=== PATIENT | female | born 1935 | race Caucasian/White ===

== ENCOUNTER → 2017-08-02 | Outpatient (CLI) | payer MEDICARE ==
[2017-08-02 10:54] LABS: HEMATOCRIT 39.7 % (36.0-47.0); HEMOGLOBIN 13.4 g/dl (12.0-16.0); MEAN CORPUSCULAR HEMOGLOBIN 30.2 pg (27.0-33.0); MEAN CORPUSCULAR HGB CONC 33.8 g/dl (32.0-36.5); MEAN CORPUSCULAR VOLUME 89.6 fl (80.0-96.0); PLATELET COUNT, AUTOMATED 216 10^3/uL (150-450); RED BLOOD COUNT 4.43 10^6/uL (4.00-5.40); RED CELL DISTRIBUTION WIDTH 12.7 % (11.5-14.5); WHITE BLOOD COUNT 5.9 10^3/uL (4.0-10.0)
[2017-08-02 11:01] LABS: APPEARANCE, URINE CLEAR (CLEAR); BACTERIA, URINE AUTO NEGATIVE (NEGATIVE); BILIRUBIN, URINE AUTO NEGATIVE (NEGATIVE); BLOOD, URINE BLOOD NEGATIVE (NEGATIVE); COLOR, URINE YELLOW (YELLOW); GLUCOSE, URINE (UA) AUTO NEGATIVE (NEGATIVE); KETONE, URINE AUTO NEGATIVE (NEGATIVE); LEUKOCYTE ESTERASE, URINE AUTO NEGATIVE (NEGATIVE); NITRITE, URINE AUTO NEGATIVE (NEGATIVE); PROTEIN, URINE AUTO NEGATIVE (NEGATIVE); RBC, URINE AUTO 2 /HPF (0-3); SPECIFIC GRAVITY URINE AUTO 1.017 (1.002-1.035); SQUAMOUS EPITHELIAL CELL UR AU 1 /HPF (0-6); UROBILINOGEN, URINE AUTO 0.2 mg/dL (0.0-2.0); WBC, URINE AUTO 0 /HPF (0-3)
[2017-08-02 11:03] LABS: PROTHROMBIN TIME 13.3 SECONDS (12.4-14.5)
[2017-08-02 11:21] LABS: ALBUMIN 4.1 GM/DL (3.2-5.2); ALBUMIN/GLOBULIN RATIO 1.28 (1.00-1.93); ALKALINE PHOSPHATASE 56 U/L (45-117); ALT/SGPT 21 U/L (12-78); ANION GAP 7 MEQ/L (8-16); AST/SGOT 16 U/L (7-37); BILIRUBIN,TOTAL 0.5 MG/DL (0.2-1.0); BLOOD UREA NITROGEN 22 MG/DL (7-18); CALCIUM LEVEL 9.9 MG/DL (8.8-10.2); CARBON DIOXIDE LEVEL 32 MEQ/L (21-32); CHLORIDE LEVEL 102 MEQ/L (98-107); CREATININE FOR GFR 0.81 MG/DL (0.55-1.30); GLOMERULAR FILTRATION RATE > 60.0 (>32); GLUCOSE, FASTING 92 MG/DL (70-100); POTASSIUM SERUM 4.1 MEQ/L (3.5-5.1); SODIUM LEVEL 141 MEQ/L (136-145); TOTAL PROTEIN 7.3 GM/DL (6.4-8.2)
[2017-08-02 11:38] LABS: ERYTHROCYTE SEDIMENTATION RATE 15 mm/hr (0-30)
== END ==
LOC: M ADMPAT 09:07
DX: Z01.818 Encounter for other preprocedural examination (principal); R93.41 Abnormal radiologic findings on diagnostic imaging of renal pelvis, ureter, or bladder; Z79.899 Other long term (current) drug therapy
CPT/HCPCS: 71046

== ENCOUNTER 2017-08-26 10:13 | Inpatient (IN) | payer MEDICARE ==
[2017-08-26] MEDS: LR 1,000 ML IV ×2 (11:00→22:21)
[2017-08-26] MEDS: PREGABALIN 75 MG CAP(LYRICA) PO (11:16)
[2017-08-26] MEDS: PERCOCET 5MG/325MG TAB PO ×2 (11:17→18:02)
[2017-08-26] MEDS ORDERED: ONDANSETRON 4MG/2ML VIAL (J2405) As Ordered (11:43)
[2017-08-26] MEDS ORDERED: PROPOFOL 200 MG/20 ML VIAL As Ordered ×2 (11:43→15:25)
[2017-08-26] MEDS ORDERED: LIDOCAINE 2% INJ 100 MG/5 ML SDV (FOR ANES.) As Ordered (11:43)
[2017-08-26] MEDS ORDERED: fentaNYL 100 MCG/2 ML INJECTION (J3010) As Ordered ×2 (11:44→12:38)
[2017-08-26] MEDS ORDERED: MIDAZOLAM INJ 2 MG/2 ML VIAL (J2250) As Ordered ×2 (11:44→12:38)
[2017-08-26] MEDS: MIDAZOLAM INJ 2 MG/2 ML VIAL (J2250) IV ×2 (13:24→13:26)
[2017-08-26] MEDS: fentaNYL 100 MCG/2 ML INJECTION (J3010) IV (13:24)
[2017-08-26] MEDS: LIDOCAINE W/EPINEPHRINE 1% 20ML VIAL As Ordered ×2 (13:54→14:30)
[2017-08-26] MEDS ORDERED: ePHEDrine SULFATE 25 MG/5 ML(5MG/ML) SYRINGE As Ordered ×2 (14:11→14:47)
[2017-08-26] MEDS ORDERED: LIDOCAINE 1% MDV 20ML VIAL (15:19)
[2017-08-26] MEDS ORDERED: ROPIvacaine 0.5% 30 ML INJECTION (J2795 PER 1MG) (15:19)
[2017-08-26] MEDS ORDERED: dexameTHASONE 10 MG/1 ML VIAL PRES.FREE (J1100) (15:19)
[2017-08-26] MEDS: CLINDAMYCIN INJ 900MG/6ML VIAL As Ordered (15:24)
[2017-08-26] MEDS: EPINEPHrine INJ 1 MG/ML 1ML AMP As Ordered (15:24)
[2017-08-26] MEDS: TRANEXAMIC ACID 100 MG/ML 10ML VIAL As Ordered (15:25)
[2017-08-26] MEDS: BUPIVACAINE HCL 0.25% 10 ML VIAL As Ordered (15:50)
[2017-08-26] MEDS: BUPIVACAINE LIPOSOME/PF 1.3% 20 ML VIAL (13.3MG/ML)(EXPAREL) As Ordered (15:50)
[2017-08-26] MEDS ORDERED: PERCOCET 5MG/325MG TAB PO (17:00)
[2017-08-26] MEDS ORDERED: FLEET ENEMA PR (17:00)
[2017-08-26] MEDS ORDERED: PROMETHAZINE INJ 25 MG/ML VIAL (J2550) IV (17:15)
[2017-08-26] MEDS: WARFARIN SOD 5 MG TAB PO (17:58)
[2017-08-26] MEDS: MORPHINE 4 MG/ML 1ML VIAL/SYRINGE (J2270) IV (18:00)
[2017-08-26] MEDS ORDERED: PILL CRUSHER/CUTTER 1 EACH XX (20:30)
[2017-08-26 20:38] LABS: HEMATOCRIT 35.7 % (36.0-47.0); MEAN CORPUSCULAR HGB CONC 33.6 g/dl (32.0-36.5); MEAN CORPUSCULAR VOLUME 89.3 fl (80.0-96.0); PLATELET COUNT, AUTOMATED 197 10^3/uL (150-450); RED CELL DISTRIBUTION WIDTH 12.5 % (11.5-14.5); WHITE BLOOD COUNT 8.3 10^3/uL (4.0-10.0)
[2017-08-26 20:59] LABS: ANION GAP 5 MEQ/L (8-16); BLOOD UREA NITROGEN 17 MG/DL (7-18); CALCIUM LEVEL 8.7 MG/DL (8.8-10.2); CARBON DIOXIDE LEVEL 29 MEQ/L (21-32); CHLORIDE LEVEL 106 MEQ/L (98-107); GLOMERULAR FILTRATION RATE > 60.0 (>32); GLUCOSE, FASTING 183 MG/DL (70-100); POTASSIUM SERUM 3.5 MEQ/L (3.5-5.1); SODIUM LEVEL 140 MEQ/L (136-145)
[2017-08-26] MEDS: LATANOPROST 0.005% OPHTH SOLN 2.5 ML OD (21:00)
[2017-08-26] MEDS: VALSARTAN 80 MG TAB (DIOVAN) PO (22:20)
[2017-08-26] MEDS: ROSUVASTATIN 10 MG TAB (CRESTOR) PO (22:20)
[2017-08-27] MEDS: PERCOCET 5MG/325MG TAB PO ×4 (02:18→20:48)
[2017-08-27 06:44] LABS: HEMATOCRIT 33.8 % (36.0-47.0); HEMOGLOBIN 11.3 g/dl (12.0-15.5); MEAN CORPUSCULAR HGB CONC 33.4 g/dl (32.0-36.5); MEAN CORPUSCULAR VOLUME 89.7 fl (80.0-96.0); PLATELET COUNT, AUTOMATED 201 10^3/uL (150-450); RED BLOOD COUNT 3.77 10^6/uL (4.00-5.40); RED CELL DISTRIBUTION WIDTH 12.7 % (11.5-14.5); WHITE BLOOD COUNT 12.2 10^3/uL (4.0-10.0)
[2017-08-27 07:52] LABS: INR 1.21; PROTHROMBIN TIME 15.5 SECONDS (12.4-14.5)
[2017-08-27] MEDS: NEBIVOLOL 5 MG TAB (BYSTOLIC) PO (10:13)
[2017-08-27] MEDS: MOM 30ML SUSPENSION UDC PO (10:15)
[2017-08-27] MEDS: SENOKOT S TAB PO ×2 (10:16→20:47)
[2017-08-27] MEDS: MIRALAX *UNIT DOSE* 17GM PACKET PO (10:16)
[2017-08-27] MEDS: WARFARIN SOD 5 MG TAB PO (17:31)
[2017-08-27] MEDS: LATANOPROST 0.005% OPHTH SOLN 2.5 ML OD (20:46)
[2017-08-27] MEDS: ROSUVASTATIN 10 MG TAB (CRESTOR) PO (20:47)
[2017-08-27] MEDS: VALSARTAN 80 MG TAB (DIOVAN) PO (20:47)
[2017-08-28] MEDS: PERCOCET 5MG/325MG TAB PO ×5 (02:12→23:23)
[2017-08-28 07:01] LABS: HEMATOCRIT 31.4 % (36.0-47.0); HEMOGLOBIN 10.4 g/dl (12.0-15.5); MEAN CORPUSCULAR HEMOGLOBIN 30.1 pg (27.0-33.0); MEAN CORPUSCULAR HGB CONC 33.1 g/dl (32.0-36.5); MEAN CORPUSCULAR VOLUME 90.8 fl (80.0-96.0); PLATELET COUNT, AUTOMATED 184 10^3/uL (150-450); RED BLOOD COUNT 3.46 10^6/uL (4.00-5.40); RED CELL DISTRIBUTION WIDTH 13.1 % (11.5-14.5)
[2017-08-28 07:09] LABS: INR 2.11; PROTHROMBIN TIME 24.4 SECONDS (12.4-14.5)
[2017-08-28 07:19] LABS: ANION GAP 3 MEQ/L (8-16); BLOOD UREA NITROGEN 21 MG/DL (7-18); CALCIUM LEVEL 8.4 MG/DL (8.8-10.2); CARBON DIOXIDE LEVEL 30 MEQ/L (21-32); CHLORIDE LEVEL 106 MEQ/L (98-107); CREATININE FOR GFR 0.85 MG/DL (0.55-1.30); GLOMERULAR FILTRATION RATE > 60.0 (>32); GLUCOSE, FASTING 109 MG/DL (70-100); SODIUM LEVEL 139 MEQ/L (136-145)
[2017-08-28] MEDS: MOM 30ML SUSPENSION UDC PO (10:01)
[2017-08-28] MEDS: MIRALAX *UNIT DOSE* 17GM PACKET PO (10:01)
[2017-08-28] MEDS: NEBIVOLOL 5 MG TAB (BYSTOLIC) PO (10:01)
[2017-08-28] MEDS: SENOKOT S TAB PO ×3 (10:01→21:21)
[2017-08-28] MEDS: ROSUVASTATIN 10 MG TAB (CRESTOR) PO (21:21)
[2017-08-28] MEDS: VALSARTAN 80 MG TAB (DIOVAN) PO (21:22)
[2017-08-28] MEDS: LATANOPROST 0.005% OPHTH SOLN 2.5 ML OD (21:24)
[2017-08-29] MEDS: PERCOCET 5MG/325MG TAB PO ×3 (05:03→14:53)
[2017-08-29 06:56] LABS: HEMATOCRIT 33.1 % (36.0-47.0); HEMOGLOBIN 10.7 g/dl (12.0-15.5); MEAN CORPUSCULAR HGB CONC 32.3 g/dl (32.0-36.5); MEAN CORPUSCULAR VOLUME 89.7 fl (80.0-96.0); PLATELET COUNT, AUTOMATED 199 10^3/uL (150-450); RED BLOOD COUNT 3.69 10^6/uL (4.00-5.40); RED CELL DISTRIBUTION WIDTH 13.1 % (11.5-14.5)
[2017-08-29 07:07] LABS: INR 1.97; PROTHROMBIN TIME 23.1 SECONDS (12.4-14.5)
[2017-08-29 07:23] LABS: ANION GAP 7 MEQ/L (8-16); BLOOD UREA NITROGEN 16 MG/DL (7-18); CALCIUM LEVEL 8.6 MG/DL (8.8-10.2); CARBON DIOXIDE LEVEL 28 MEQ/L (21-32); CHLORIDE LEVEL 104 MEQ/L (98-107); CREATININE FOR GFR 0.84 MG/DL (0.55-1.30); GLOMERULAR FILTRATION RATE > 60.0 (>32); GLUCOSE, FASTING 93 MG/DL (70-100); SODIUM LEVEL 139 MEQ/L (136-145)
[2017-08-29] MEDS: MOM 30ML SUSPENSION UDC PO ×2 (09:00→09:06)
[2017-08-29] MEDS: NEBIVOLOL 5 MG TAB (BYSTOLIC) PO (09:06)
[2017-08-29] MEDS: MIRALAX *UNIT DOSE* 17GM PACKET PO (09:06)
[2017-08-29] MEDS: SENOKOT S TAB PO (09:07)
[2017-08-29] MEDS: ACETAMINOPHEN TAB 650MG DOSE (2X325MG) PO (09:18)
[2017-08-29] MEDS ORDERED: WARFARIN SOD 2.5 MG TAB PO (17:00)
== END 2017-08-29 15:43 | disposition other institution (70) | DRG 470 ==
LOC: M OR 10:13 → M MS5PR 17:10
PROC: 0SRC0J9 Replacement of Right Knee Joint with Synthetic Substitute, Cemented, Open Approach (ICD-10-PCS; principal; 2017-08-26 12:15)
DX: M17.11 Unilateral primary osteoarthritis, right knee (principal); Z88.2 Allergy status to sulfonamides; Z88.0 Allergy status to penicillin; Z88.6 Allergy status to analgesic agent; I10 Essential (primary) hypertension; E78.00 Pure hypercholesterolemia, unspecified; Z79.899 Other long term (current) drug therapy; Z90.710 Acquired absence of both cervix and uterus; Z98.41 Cataract extraction status, right eye; Z98.42 Cataract extraction status, left eye

== ENCOUNTER 2017-08-29 15:21 | Inpatient (IN) | payer MEDICARE ==
[~2017-08-29 15:21] MED LIST: BISACODYL 10 MG SUPP PR; BISACODYL 5 MG TAB PO; FLEET ENEMA PR; ONDANSETRON 4 MG TAB (S0181) PO
[2017-08-29] MEDS ORDERED: PILL CRUSHER/CUTTER 1 EACH XX (17:00)
[2017-08-29] MEDS: WARFARIN SOD 2.5 MG TAB PO (18:50)
[2017-08-29] MEDS: ROSUVASTATIN 10 MG TAB (CRESTOR) PO (20:48)
[2017-08-29] MEDS: SENNA 8.6 MG TAB (SENOKOT) PO (20:48)
[2017-08-29] MEDS: LATANOPROST 0.005% OPHTH SOLN 2.5 ML OD (20:48)
[2017-08-29] MEDS: VALSARTAN 80 MG TAB (DIOVAN) PO (20:49)
[2017-08-29] MEDS: PERCOCET 5MG/325MG TAB PO (20:49)
[2017-08-30] MEDS: PERCOCET 5MG/325MG TAB PO ×3 (07:01→20:28)
[2017-08-30 07:43] LABS: BASO % 0.3 % (0.0-1.0); EOS # 0.1 10^3/uL (0.0-0.50); EOS % 0.6 % (0.0-3.0); HEMATOCRIT 30.9 % (36.0-47.0); HEMOGLOBIN 10.4 g/dl (12.0-15.5); IMMATURE GRANULOCYTE % 0.3 % (0-3.0); LYMPH # 1.4 10^3/uL (1.5-4.5); LYMPH % 17.8 % (24.0-44.0); MEAN CORPUSCULAR HEMOGLOBIN 30.3 pg (27.0-33.0); MEAN CORPUSCULAR HGB CONC 33.7 g/dl (32.0-36.5); MEAN CORPUSCULAR VOLUME 90.1 fl (80.0-96.0); MONO # 0.5 10^3/uL (0.0-0.8); MONO % 5.8 % (0.0-5.0); NEUTROPHILS % 75.2 % (36.0-66.0); PLATELET COUNT, AUTOMATED 172 10^3/uL (150-450); RED BLOOD COUNT 3.43 10^6/uL (4.00-5.40); RED CELL DISTRIBUTION WIDTH 12.8 % (11.5-14.5)
[2017-08-30 08:06] LABS: ALBUMIN 2.8 GM/DL (3.2-5.2); ALBUMIN/GLOBULIN RATIO 0.93 (1.00-1.93); ALKALINE PHOSPHATASE 44 U/L (45-117); ALT/SGPT 14 U/L (12-78); ANION GAP 8 MEQ/L (8-16); AST/SGOT 16 U/L (7-37); BILIRUBIN,TOTAL 0.5 MG/DL (0.2-1.0); BLOOD UREA NITROGEN 14 MG/DL (7-18); CARBON DIOXIDE LEVEL 27 MEQ/L (21-32); CHLORIDE LEVEL 106 MEQ/L (98-107); GLOMERULAR FILTRATION RATE > 60.0 (>32); GLUCOSE, FASTING 90 MG/DL (70-100); SODIUM LEVEL 141 MEQ/L (136-145); TOTAL PROTEIN 5.8 GM/DL (6.4-8.2)
[2017-08-30 08:52] LABS: INR 1.73; PROTHROMBIN TIME 20.7 SECONDS (12.4-14.5)
[2017-08-30] MEDS: CHLORTHALIDONE 12.5MG PER 1/2 TABLET PO (09:06)
[2017-08-30] MEDS: MIRALAX *UNIT DOSE* 17GM PACKET PO (09:06)
[2017-08-30] MEDS: NEBIVOLOL 5 MG TAB (BYSTOLIC) PO (09:06)
[2017-08-30] MEDS: WARFARIN SOD 5 MG TAB PO (16:24)
[2017-08-30] MEDS: ROSUVASTATIN 10 MG TAB (CRESTOR) PO (20:23)
[2017-08-30] MEDS: VALSARTAN 80 MG TAB (DIOVAN) PO (20:26)
[2017-08-30] MEDS: SENNA 8.6 MG TAB (SENOKOT) PO (20:28)
[2017-08-30] MEDS: LATANOPROST 0.005% OPHTH SOLN 2.5 ML OD (20:29)
[2017-08-31] MEDS: PERCOCET 5MG/325MG TAB PO ×4 (03:57→23:32)
[2017-08-31 06:55] LABS: INR 1.86
[2017-08-31] MEDS: MIRALAX *UNIT DOSE* 17GM PACKET PO (08:13)
[2017-08-31] MEDS: CHLORTHALIDONE 12.5MG PER 1/2 TABLET PO (09:11)
[2017-08-31] MEDS: NEBIVOLOL 5 MG TAB (BYSTOLIC) PO (09:13)
[2017-08-31] MEDS: WARFARIN SOD 2.5 MG TAB PO (16:04)
[2017-08-31] MEDS: ROSUVASTATIN 10 MG TAB (CRESTOR) PO (21:00)
[2017-08-31] MEDS: SENNA 8.6 MG TAB (SENOKOT) PO (21:00)
[2017-08-31] MEDS: VALSARTAN 80 MG TAB (DIOVAN) PO (21:00)
[2017-08-31] MEDS: LATANOPROST 0.005% OPHTH SOLN 2.5 ML OD (21:00)
[2017-09-01] MEDS: PERCOCET 5MG/325MG TAB PO ×3 (06:20→20:36)
[2017-09-01 06:31] LABS: INR 1.94; PROTHROMBIN TIME 22.7 SECONDS (12.4-14.5)
[2017-09-01] MEDS: MIRALAX *UNIT DOSE* 17GM PACKET PO (08:56)
[2017-09-01] MEDS: CHLORTHALIDONE 12.5MG PER 1/2 TABLET PO (08:59)
[2017-09-01] MEDS: NEBIVOLOL 5 MG TAB (BYSTOLIC) PO (08:59)
[2017-09-01] MEDS: ACETAMINOPHEN TAB 650MG DOSE (2X325MG) PO (09:34)
[2017-09-01] MEDS: WARFARIN SOD 2.5 MG TAB PO (16:03)
[2017-09-01] MEDS: ROSUVASTATIN 10 MG TAB (CRESTOR) PO (20:35)
[2017-09-01] MEDS: VALSARTAN 80 MG TAB (DIOVAN) PO (20:35)
[2017-09-01] MEDS: SENNA 8.6 MG TAB (SENOKOT) PO (20:36)
[2017-09-01] MEDS: LATANOPROST 0.005% OPHTH SOLN 2.5 ML OD (20:36)
[2017-09-02] MEDS: PERCOCET 5MG/325MG TAB PO ×4 (05:18→20:31)
[2017-09-02 07:15] LABS: INR 1.76; PROTHROMBIN TIME 21.1 SECONDS (12.4-14.5)
[2017-09-02] MEDS ORDERED: VALSARTAN 80 MG TAB (DIOVAN) PO (09:00)
[2017-09-02] MEDS: CHLORTHALIDONE 12.5MG PER 1/2 TABLET PO (09:54)
[2017-09-02] MEDS: NEBIVOLOL 5 MG TAB (BYSTOLIC) PO (09:54)
[2017-09-02] MEDS: MIRALAX *UNIT DOSE* 17GM PACKET PO (09:55)
[2017-09-02] MEDS: WARFARIN SOD 5 MG TAB PO (17:52)
[2017-09-02] MEDS: ROSUVASTATIN 10 MG TAB (CRESTOR) PO (20:30)
[2017-09-02] MEDS: SENNA 8.6 MG TAB (SENOKOT) PO (20:31)
[2017-09-02] MEDS: LATANOPROST 0.005% OPHTH SOLN 2.5 ML OD (20:35)
[2017-09-03] MEDS: PERCOCET 5MG/325MG TAB PO ×4 (02:51→20:24)
[2017-09-03 07:37] LABS: INR 1.92; PROTHROMBIN TIME 22.6 SECONDS (12.4-14.5)
[2017-09-03] MEDS: VALSARTAN 80 MG TAB (DIOVAN) PO (08:39)
[2017-09-03] MEDS: CHLORTHALIDONE 12.5MG PER 1/2 TABLET PO (11:02)
[2017-09-03] MEDS: NEBIVOLOL 5 MG TAB (BYSTOLIC) PO (11:02)
[2017-09-03] MEDS: MIRALAX *UNIT DOSE* 17GM PACKET PO (11:02)
[2017-09-03] MEDS: WARFARIN SOD 4 MG TAB PO (17:58)
[2017-09-03] MEDS: LATANOPROST 0.005% OPHTH SOLN 2.5 ML OD (20:23)
[2017-09-03] MEDS: SENNA 8.6 MG TAB (SENOKOT) PO (20:23)
[2017-09-03] MEDS: ROSUVASTATIN 10 MG TAB (CRESTOR) PO (20:23)
[2017-09-04] MEDS: PERCOCET 5MG/325MG TAB PO ×3 (02:27→12:42)
[2017-09-04 08:02] LABS: INR 2.08; PROTHROMBIN TIME 24.1 SECONDS (12.4-14.5)
[2017-09-04] MEDS: MIRALAX *UNIT DOSE* 17GM PACKET PO (08:27)
[2017-09-04] MEDS: CHLORTHALIDONE 12.5MG PER 1/2 TABLET PO (08:27)
[2017-09-04] MEDS: VALSARTAN 80 MG TAB (DIOVAN) PO (08:27)
[2017-09-04] MEDS: NEBIVOLOL 5 MG TAB (BYSTOLIC) PO (08:27)
[2017-09-04] MEDS: ACETAMINOPHEN TAB 650MG DOSE (2X325MG) PO (11:32)
[2017-09-04] MEDS: WARFARIN SOD 2.5 MG TAB PO (16:41)
[2017-09-04] MEDS: SENNA 8.6 MG TAB (SENOKOT) PO (21:00)
[2017-09-04] MEDS: ROSUVASTATIN 10 MG TAB (CRESTOR) PO (21:11)
[2017-09-04] MEDS: LATANOPROST 0.005% OPHTH SOLN 2.5 ML OD (21:12)
[2017-09-05] MEDS: PERCOCET 5MG/325MG TAB PO ×3 (02:11→21:47)
[2017-09-05 07:05] LABS: INR 2.02; PROTHROMBIN TIME 23.6 SECONDS (12.4-14.5)
[2017-09-05] MEDS: MIRALAX *UNIT DOSE* 17GM PACKET PO (08:08)
[2017-09-05] MEDS: VALSARTAN 80 MG TAB (DIOVAN) PO (08:08)
[2017-09-05] MEDS: ACETAMINOPHEN TAB 650MG DOSE (2X325MG) PO (08:09)
[2017-09-05] MEDS: CHLORTHALIDONE 12.5MG PER 1/2 TABLET PO (08:09)
[2017-09-05] MEDS: NEBIVOLOL 5 MG TAB (BYSTOLIC) PO (08:09)
[2017-09-05] MEDS: WARFARIN SOD 2.5 MG TAB PO (16:42)
[2017-09-05] MEDS: ROSUVASTATIN 10 MG TAB (CRESTOR) PO (20:15)
[2017-09-05] MEDS: SENNA 8.6 MG TAB (SENOKOT) PO (20:15)
[2017-09-05] MEDS: LATANOPROST 0.005% OPHTH SOLN 2.5 ML OD (20:15)
[2017-09-06] MEDS: PERCOCET 5MG/325MG TAB PO ×2 (03:33→11:33)
[2017-09-06 08:04] LABS: INR 2.04; PROTHROMBIN TIME 23.7 SECONDS (12.4-14.5)
[2017-09-06] MEDS: NEBIVOLOL 5 MG TAB (BYSTOLIC) PO (08:50)
[2017-09-06] MEDS: VALSARTAN 80 MG TAB (DIOVAN) PO (08:51)
[2017-09-06] MEDS: CHLORTHALIDONE 12.5MG PER 1/2 TABLET PO (08:51)
[2017-09-06] MEDS: MIRALAX *UNIT DOSE* 17GM PACKET PO (08:52)
== END 2017-09-06 12:00 | disposition home or self-care (01) | DRG 560 ==
LOC: M PM&R 15:21
DX: Z47.1 Aftercare following joint replacement surgery (principal); H34.9 Unspecified retinal vascular occlusion; I10 Essential (primary) hypertension; E78.5 Hyperlipidemia, unspecified; Z79.02 Long term (current) use of antithrombotics/antiplatelets; Z90.710 Acquired absence of both cervix and uterus; Z98.49 Cataract extraction status, unspecified eye; H40.9 Unspecified glaucoma; M25.571 Pain in right ankle and joints of right foot; Z79.899 Other long term (current) drug therapy; Z88.0 Allergy status to penicillin; Z88.2 Allergy status to sulfonamides; Z88.6 Allergy status to analgesic agent; Z88.8 Allergy status to other drugs, medicaments and biological substances; Z96.651 Presence of right artificial knee joint